=== PATIENT | male | born 1960 | race African-American/Black ===

== ENCOUNTER 2020-03-16 19:11 | Emergency (ER) | payer MEDICAID, OTHER ==
[~2020-03-16] VITALS: Ht 170.2 cm; Wt 70.0 kg
[2020-03-16] MEDS ORDERED: MAGNESIUM/ALUMINUM HYDROXIDE/SIMETHICONE 30ML UDC PO STA (19:48)
[2020-03-16 20:36] LABS: CLARITY URINE CLEAR (CLEAR); COLOR URINE YELLOW (YELLOW); KETONES URINE NEGATIVE (NEGATIVE); LEUKOCYTE ESTERASE URINE NEGATIVE (NEGATIVE); NITRITE URINE NEGATIVE (NEGATIVE); OCCULT BLOOD URINE NEGATIVE (NEGATIVE); PH URINE 6.5 (4.5-8.0); PROTEIN URINE TRACE (NEGATIVE); SPECIFIC GRAVITY URINE 1.038 (1.005-1.030)
[2020-03-16 20:50] LABS: *COCAINE SCREEN URINE NEGATIVE (NEGATIVE); METHADONE URINE SCREEN NEGATIVE (NEGATIVE); OPIATES URINE SCREEN NEGATIVE (NEGATIVE); PHENCYCLIDINE URINE SCREEN NEGATIVE (NEGATIVE)
[2020-03-16 20:51] LABS: *AMPHETAMINES SCREEN URINE NEGATIVE (NEGATIVE); *BARBITURATES SCREEN URINE NEGATIVE (NEGATIVE); *BENZODIAZEPINES SCREEN URINE NEGATIVE (NEGATIVE); CANNABINOID URINE SCREEN NEGATIVE (NEGATIVE)
[2020-03-16 21:28] LABS: BASOPHILS % 0.3 % (0.0-2.0); EOSINOPHILS % 0.2 % (0.0-5.0); HEMATOCRIT. 33.1 % (42.0-52.0); HEMOGLOBIN. 10.9 g/dL (14.0-18.0); LYMPHOCYTES % 8.9 % (20.0-50.0); MEAN CORPUSCULAR HEMOGLOBIN 27.2 pg (28.0-32.0); MEAN CORPUSCULAR VOLUME 82.8 fL (80.0-94.0); MEAN PLATELET VOLUME 8.2 fl (7.4-10.4); MONOCYTES % 6.4 % (2.0-8.0); NEUTROPHILS % 84.2 % (40.0-76.0); PLATELET 288 x1000/uL (130-400); RED CELL DISTRIBUTION WIDTH 16.3 % (11.6-14.6)
[2020-03-16 21:29] LABS: CHLORIDE 98 mEq/L (98-107)
[2020-03-16 21:33] LABS: ETHANOL BLOOD < 10 mg/dL
[2020-03-16] MEDS ORDERED: ONDANSETRON HCL 4MG/2ML INJ IV STA (23:33)
[2020-03-16] MEDS ORDERED: MORPHINE SULFATE 4 MG/ML CPJ (NOT FOR IM USE) IV STA (23:33)
[2020-03-16] MEDS ORDERED: MAGNESIUM CITRATE 300ML SOLUTION PO ONE (23:45)
[2020-03-16] MEDS ORDERED: SODIUM CHLORIDE 0.9% 1,000 ML IV ONE (23:45)
[2020-03-16] MEDS ORDERED: MAGNESIUM HYDROXIDE 400MG/5ML 30ML UDC PO ONE (23:45)
[2020-03-17 01:35] VITALS: BP 154/91
== END 2020-03-17 01:38 | disposition home or self-care (01) ==
LOC: ER 19:11
DX: R10.9 Unspecified abdominal pain (principal); Z85.46 Personal history of malignant neoplasm of prostate; I10 Essential (primary) hypertension; E11.9 Type 2 diabetes mellitus without complications
CPT/HCPCS: 36415; 74176; 80053; 80305; 80320; 81003; 83690; 85025; 93005; 96374; 96375; 99285; J2270; J2405; J7030; G0480

== ENCOUNTER 2020-03-22 03:34 | Emergency (ER) | payer MEDICAID ==
[~2020-03-22] VITALS: Ht 172.7 cm; Wt 63.0 kg
[2020-03-22 03:35] VITALS: BP 140/82
[2020-03-22] MEDS ORDERED: GABAPENTIN 400MG CAPSULE PO ONE (07:00)
== END 2020-03-22 08:05 | disposition home or self-care (01) ==
LOC: ER 03:34
DX: E11.43 Type 2 diabetes mellitus with diabetic autonomic (poly)neuropathy (principal); Z76.0 Encounter for issue of repeat prescription; I10 Essential (primary) hypertension; Z79.4 Long term (current) use of insulin; Z79.84 Long term (current) use of oral hypoglycemic drugs; Z85.46 Personal history of malignant neoplasm of prostate; Z79.899 Other long term (current) drug therapy
CPT/HCPCS: 99283

== ENCOUNTER 2020-04-01 07:43 | Inpatient (IN) | payer MEDICAID, OTHER ==
[~2020-04-01] VITALS: Ht 167.6 cm; Wt 59.9 kg
[2020-04-01] MEDS ORDERED: SODIUM CHLORIDE 0.9% 10ML VIAL ONE (07:53)
[2020-04-01] MEDS ORDERED: ETOMIDATE 2MG/ML 10ML VIAL IV ONE (07:53)
[2020-04-01] MEDS ORDERED: VECURONIUM BROMIDE 10 MG/VIAL IV ONE ×2 (07:53→08:30)
[2020-04-01] MEDS ORDERED: DEXTROSE 50% WATER 50ML SYRINGE IV ONE (07:58)
[2020-04-01] MEDS ORDERED: PROPOFOL 10MG/ML 100ML 100 ML IV ONE ×2 (08:06→08:30)
[2020-04-01] MEDS ORDERED: SODIUM CHLORIDE 0.9% 1,000 ML IV ONE (08:22)
[2020-04-01 08:45] LABS: HEMATOCRIT. 31.6 % (42.0-52.0); HEMOGLOBIN. 10.5 g/dL (14.0-18.0); MEAN CORPUSCULAR VOLUME 81.8 fL (80.0-94.0); PLATELET 286 x1000/uL (130-400); RED BLOOD CELL COUNT 3.87 mill/uL (4.7-6.1); RED CELL DISTRIBUTION WIDTH 16.4 % (11.6-14.6)
[2020-04-01 08:46] LABS: CLARITY URINE CLEAR (CLEAR); COLOR URINE YELLOW (YELLOW); KETONES URINE NEGATIVE (NEGATIVE); LEUKOCYTE ESTERASE URINE NEGATIVE (NEGATIVE); NITRITE URINE NEGATIVE (NEGATIVE); OCCULT BLOOD URINE NEGATIVE (NEGATIVE); PROTEIN URINE 1+ (NEGATIVE); SPECIFIC GRAVITY URINE 1.021 (1.005-1.030)
[2020-04-01 08:49] LABS: CHLORIDE 106 mEq/L (98-107)
[2020-04-01 08:54] LABS: ETHANOL BLOOD < 10 mg/dL
[2020-04-01 09:00] LABS: INR 1.4; PROTHROMBIN TIME 14.8 sec (9.6-11.0)
[2020-04-01 09:08] LABS: BG BASE EXCESS -0.3 mmol/L (-2.0-2.0); BG CARBOXYHEMOGLOBIN 0.2 % (0.5-1.5); BG DEOXYHEMOGLOBIN 0.8 % (0.0-5.0); BG HCO3 ACT 29.1 mmol/L (22.0-26.0); BG METHEMOGLOBIN 1.1 % (0.0-1.5); BG OXYGEN SATURATION 99.2 % (92.0-98.5); BG OXYHEMOGLOBIN 97.9 % (94.0-97.0); BG PCO2 74.8 mmHg (35.0-45.0); BG PH 7.208 (7.350-7.450); BG PO2 446.7 mmHg (75.0-100.0); BG SAMPLE SITE LEFT BRACHIAL; BG TIDAL VOLUME(mL) 500 mL; BG TOTAL HEMOGLOBIN 11.4 g/dL (12.0-18.0); BG VENT MODE VENT - A/C; BG VENT RATE 14 set
[2020-04-01 09:17] LABS: *AMPHETAMINES SCREEN URINE NEGATIVE (NEGATIVE); *BARBITURATES SCREEN URINE NEGATIVE (NEGATIVE); *BENZODIAZEPINES SCREEN URINE NEGATIVE (NEGATIVE); *COCAINE SCREEN URINE NEGATIVE (NEGATIVE)
[2020-04-01 09:18] LABS: CANNABINOID URINE SCREEN NEGATIVE (NEGATIVE); METHADONE URINE SCREEN NEGATIVE (NEGATIVE); OPIATES URINE SCREEN NEGATIVE (NEGATIVE); PHENCYCLIDINE URINE SCREEN NEGATIVE (NEGATIVE)
[2020-04-01 09:41] LABS: NUCLEATED RED BLOOD CELLS 4 /100 WBC; PLATELET ESTIMATE NORMAL
[2020-04-01] MEDS ORDERED: PIPERACILLIN/TAZ 3.375G PREMIX 50 ML IV ONE (09:45)
[2020-04-01 10:43] LABS: BG BASE EXCESS -2.2 mmol/L (-2.0-2.0); BG CARBOXYHEMOGLOBIN 0.3 % (0.5-1.5); BG DEOXYHEMOGLOBIN 12.1 % (0.0-5.0); BG HCO3 ACT 25.3 mmol/L (22.0-26.0); BG METHEMOGLOBIN 0.3 % (0.0-1.5); BG OXYGEN SATURATION 87.8 % (92.0-98.5); BG OXYHEMOGLOBIN 87.3 % (94.0-97.0); BG PCO2 56.5 mmHg (35.0-45.0); BG PH 7.269 (7.350-7.450); BG SAMPLE SITE RIGHT RADIAL; BG TIDAL VOLUME(mL) 500 mL; BG TOTAL HEMOGLOBIN 10.9 g/dL (12.0-18.0); BG VENT MODE VENT - A/C; BG VENT RATE 20 set
[2020-04-01] MEDS ORDERED: ENOXAPARIN 40MG/0.4ML SYR SUBCUT SCH (10:45)
[2020-04-01] MEDS ORDERED: IPRATROPIUM/ALBUTEROL 0.5-3(2.5)MG/3ML NEB NEB PRN (10:45)
[2020-04-01] MEDS ORDERED: ONDANSETRON HCL 4MG/2ML INJ IV PRN (10:45)
[2020-04-01] MEDS ORDERED: PIPERACILLIN/TAZ 3.375G PREMIX 50 ML IV SCH (10:45)
[2020-04-01 10:58] LABS: PHOSPHORUS 3.6 mg/dL (2.5-4.9)
[2020-04-01] MEDS ORDERED: ASPIRIN 325MG EC TABLET PO NR (11:00)
[2020-04-01] MEDS ORDERED: VANCOMYCIN 1 G PREMIX 200 ML IV NR (12:00)
[2020-04-01 12:20] LABS: HEPATITIS B SURFACE ANTIGEN NEGATIVE
[2020-04-01 12:49] LABS: HEPATITIS A AB IGM NEGATIVE (NEGATIVE)
[2020-04-01] MEDS ORDERED: ASPIRIN 300MG SUPP PR ONE (13:30)
[2020-04-01] MEDS ORDERED: DEXAMETHASONE 10 MG/ML VIAL IV ONE (13:30)
[2020-04-01 13:48] LABS: CREATINE KINASE MB FRACTION 6.7 ng/mL (0.5-3.6)
[2020-04-01] MEDS: ENOXAPARIN 40MG/0.4ML SYR SUBCUT SCH (14:39)
[2020-04-01] MEDS ORDERED: PROPOFOL 10MG/ML 100ML 100 ML IV PRN (17:45)
[2020-04-01] MEDS: PANTOPRAZOLE SODIUM 40 MG/VIAL IV SCH (18:41)
[2020-04-01] MEDS: PIPERACILLIN/TAZOBACTAM 3.375 G in DEXT 5% WATER 100 ML IV SCH (18:49)
[2020-04-01] MEDS: IPRATROPIUM/ALBUTEROL 0.5-3(2.5)MG/3ML NEB HHN SCH (21:21)
[2020-04-01] MEDS: VANCOMYCIN 750 MG PREMIX 150 ML IV SCH (22:49)
[2020-04-01 23:18] LABS: CREATINE KINASE MB FRACTION 4.3 ng/mL (0.5-3.6)
[2020-04-02] MEDS: IPRATROPIUM/ALBUTEROL 0.5-3(2.5)MG/3ML NEB HHN SCH ×4 (01:05→19:50)
[2020-04-02] MEDS: PIPERACILLIN/TAZOBACTAM 3.375 G in DEXT 5% WATER 100 ML IV SCH ×3 (02:00→21:28)
[2020-04-02] MEDS ORDERED: IOHEXOL-350 100 ML BOTTLE ONE (04:32)
[2020-04-02 04:41] LABS: HEMATOCRIT. 23.6 % (42.0-52.0); HEMOGLOBIN. 7.9 g/dL (14.0-18.0); MEAN CORPUSCULAR VOLUME 80.6 fL (80.0-94.0); MEAN PLATELET VOLUME 7.4 fl (7.4-10.4); PLATELET 159 x1000/uL (130-400); RED BLOOD CELL COUNT 2.93 mill/uL (4.7-6.1); RED CELL DISTRIBUTION WIDTH 16.3 % (11.6-14.6)
[2020-04-02] MEDS: VANCOMYCIN 750 MG PREMIX 150 ML IV SCH (06:56)
[2020-04-02 08:14] LABS: PLATELET ESTIMATE NORMAL
[2020-04-02 09:27] LABS: BG BASE EXCESS -4.6 mmol/L (-2.0-2.0); BG CARBOXYHEMOGLOBIN 0.1 % (0.5-1.5); BG DEOXYHEMOGLOBIN 1.5 % (0.0-5.0); BG FRACTION INSPIRED OXYGEN 50; BG HCO3 ACT 18.3 mmol/L (22.0-26.0); BG METHEMOGLOBIN 0.5 % (0.0-1.5); BG OXYGEN SATURATION 98.5 % (92.0-98.5); BG OXYHEMOGLOBIN 97.9 % (94.0-97.0); BG PCO2 26.5 mmHg (35.0-45.0); BG PH 7.457 (7.350-7.450); BG PO2 264.3 mmHg (75.0-100.0); BG SAMPLE SITE RIGHT BRACHIAL; BG TIDAL VOLUME(mL) 500 mL; BG TOTAL HEMOGLOBIN 9.1 g/dL (12.0-18.0); BG VENT MODE VENT - A/C; BG VENT RATE 20 set
[2020-04-02] MEDS: PANTOPRAZOLE SODIUM 40 MG/VIAL IV SCH (09:55)
[2020-04-02] MEDS: ENOXAPARIN 40MG/0.4ML SYR SUBCUT SCH (12:00)
[2020-04-02] MEDS ORDERED: ENOXAPARIN 30MG/0.3ML SYR SUBCUT NR (15:00)
[2020-04-02] MEDS ORDERED: PROPOFOL 10MG/ML 100ML 100 ML IV PRN (15:15)
[2020-04-02] MEDS ORDERED: VANCOMYCIN 1 G PREMIX 200 ML IV SCH (18:00)
[2020-04-02 19:45] LABS: TOTAL IRON BINDING CAPACITY 193 ug/dL (250-450)
[2020-04-02 20:05] LABS: FOLIC ACID (FOLATE) SERUM 9.7 ng/mL (>5.38)
[2020-04-03] VITALS (18 sets, daily range): BP systolic 80–156; BP diastolic 46–81
[2020-04-03] MEDS: IPRATROPIUM/ALBUTEROL 0.5-3(2.5)MG/3ML NEB HHN SCH ×4 (03:55→20:18)
[2020-04-03 04:07] LABS: HIV SCREEN 4G Non Reactive (Non Reactive)
[2020-04-03 05:42] LABS: HEMOGLOBIN. 7.6 g/dL (14.0-18.0); MEAN CORPUSCULAR VOLUME 82.1 fL (80.0-94.0); MEAN PLATELET VOLUME 7.3 fl (7.4-10.4); PLATELET 188 x1000/uL (130-400); RED CELL DISTRIBUTION WIDTH 16.7 % (11.6-14.6)
[2020-04-03 05:49] LABS: CHLORIDE 103 mEq/L (98-107)
[2020-04-03 08:57] LABS: PLATELET ESTIMATE NORMAL
[2020-04-03] MEDS ORDERED: ENOXAPARIN 80MG/0.8ML SYR SUBCUT SCH (09:00)
[2020-04-03] MEDS ORDERED: FENTANYL CITRATE/PF 1,000 MCG in SODIUM CHLORIDE 0.9% 80 ML IV PRN (11:00)
[2020-04-03] MEDS ORDERED: MIDAZOLAM HCL 100 MG in DEXT 5% WATER 80 ML IV PRN (11:00)
[2020-04-03] MEDS: LEVETIRACETAM 500MG PREMIX 100 ML IV SCH ×2 (11:08→21:04)
[2020-04-03] MEDS: PANTOPRAZOLE SODIUM 40 MG/VIAL IV SCH (11:08)
[2020-04-03 11:13] LABS: BG BASE EXCESS -4.6 mmol/L (-2.0-2.0); BG CARBOXYHEMOGLOBIN 0.2 % (0.5-1.5); BG DEOXYHEMOGLOBIN 2.4 % (0.0-5.0); BG FRACTION INSPIRED OXYGEN 35; BG HCO3 ACT 21.7 mmol/L (22.0-26.0); BG METHEMOGLOBIN 0.3 % (0.0-1.5); BG OXYGEN SATURATION 97.6 % (92.0-98.5); BG OXYHEMOGLOBIN 97.1 % (94.0-97.0); BG PCO2 45.7 mmHg (35.0-45.0); BG PH 7.294 (7.350-7.450); BG PO2 129.3 mmHg (75.0-100.0); BG SAMPLE SITE LEFT RADIAL; BG TIDAL VOLUME(mL) 500 mL; BG TOTAL HEMOGLOBIN 8.1 g/dL (12.0-18.0); BG VENT MODE VENT - A/C; BG VENT RATE 14 set
[2020-04-03] MEDS: BLOOD SUGAR DIAGNOSTIC STRIP TEST SCH ×3 (11:16→23:18)
[2020-04-03] MEDS: LORAZEPAM 2MG/ML CPJ IV PRN (11:16)
[2020-04-03] MEDS: INSULIN LISPRO 100 UNITS/ML SUBCUT SCH ×3 (11:34→23:19)
[2020-04-03] MEDS ORDERED: CEPH500C2 MT (12:08)
[2020-04-03] MEDS ORDERED: SENN-170 PO (12:08)
[2020-04-03] MEDS ORDERED: GABA800T97 MT (12:08)
[2020-04-03] MEDS: PIPERACILLIN/TAZOBACTAM 3.375 G in DEXT 5% WATER 100 ML IV SCH ×3 (13:00→17:30)
[2020-04-03] MEDS: SODIUM CHLORIDE 0.9% 1,000 ML IV SCH (14:15)
[2020-04-03] MEDS: THIAMINE HCL 100MG TABLET PO SCH (17:30)
[2020-04-03] MEDS: INSULIN GLARGINE UD 100 UNITS/ML SYR SUBCUT SCH (21:04)
[2020-04-04] VITALS (28 sets, daily range): BP systolic 99–158; BP diastolic 56–83
[2020-04-04] MEDS: PIPERACILLIN/TAZOBACTAM 3.375 G in DEXT 5% WATER 100 ML IV SCH ×3 (01:54→17:17)
[2020-04-04] MEDS: SODIUM CHLORIDE 0.9% 1,000 ML IV SCH ×2 (01:55→15:02)
[2020-04-04] MEDS: IPRATROPIUM/ALBUTEROL 0.5-3(2.5)MG/3ML NEB HHN SCH ×4 (02:00→19:44)
[2020-04-04] MEDS: BLOOD SUGAR DIAGNOSTIC STRIP TEST SCH ×4 (05:11→23:53)
[2020-04-04] MEDS: INSULIN LISPRO 100 UNITS/ML SUBCUT SCH ×4 (05:11→23:58)
[2020-04-04 05:31] LABS: MEAN CORPUSCULAR HEMOGLOBIN 26.9 pg (28.0-32.0); MEAN CORPUSCULAR VOLUME 80.9 fL (80.0-94.0); MEAN PLATELET VOLUME 7.6 fl (7.4-10.4); PLATELET 164 x1000/uL (130-400); RED BLOOD CELL COUNT 2.46 mill/uL (4.7-6.1); RED CELL DISTRIBUTION WIDTH 16.6 % (11.6-14.6)
[2020-04-04 05:38] LABS: CHLORIDE 106 mEq/L (98-107)
[2020-04-04 06:13] LABS: HEMATOCRIT. 19.9 % (42.0-52.0); HEMOGLOBIN. 6.6 g/dL (14.0-18.0)
[2020-04-04 08:12] LABS: BG BASE EXCESS 3.1 mmol/L (-2.0-2.0); BG CARBOXYHEMOGLOBIN 0.7 % (0.5-1.5); BG DEOXYHEMOGLOBIN 1.8 % (0.0-5.0); BG FRACTION INSPIRED OXYGEN 30; BG HCO3 ACT 27.1 mmol/L (22.0-26.0); BG METHEMOGLOBIN 0.3 % (0.0-1.5); BG OXYGEN SATURATION 98.2 % (92.0-98.5); BG OXYHEMOGLOBIN 97.2 % (94.0-97.0); BG PCO2 38.6 mmHg (35.0-45.0); BG PH 7.464 (7.350-7.450); BG PO2 128.2 mmHg (75.0-100.0); BG SAMPLE SITE LEFT RADIAL; BG TIDAL VOLUME(mL) 500 mL; BG TOTAL HEMOGLOBIN 7.4 g/dL (12.0-18.0); BG VENT MODE VENT - A/C; BG VENT RATE 18 set
[2020-04-04 09:08] LABS: PLATELET ESTIMATE NORMAL
[2020-04-04] MEDS: THIAMINE HCL 100MG TABLET PO SCH ×2 (09:12→17:16)
[2020-04-04] MEDS: LEVETIRACETAM 500MG PREMIX 100 ML IV SCH ×2 (09:12→20:11)
[2020-04-04] MEDS: FOLIC ACID 1MG TABLET PO SCH (09:12)
[2020-04-04] MEDS: PANTOPRAZOLE SODIUM 40 MG/VIAL IV SCH (09:12)
[2020-04-04] MEDS ORDERED: POLYETHYLENE GLYCOL 3350 (17GM) 1 DOSE PACK PO NR (09:26)
[2020-04-04] MEDS: INSULIN GLARGINE UD 100 UNITS/ML SYR SUBCUT SCH ×2 (12:22→21:46)
[2020-04-04] MEDS: ACETAMINOPHEN 650MG/20.3ML UDC PO PRN (21:45)
[2020-04-05] VITALS (25 sets, daily range): BP systolic 116–168; BP diastolic 63–88
[2020-04-05] MEDS: IPRATROPIUM/ALBUTEROL 0.5-3(2.5)MG/3ML NEB HHN SCH ×4 (01:54→20:29)
[2020-04-05] MEDS: PIPERACILLIN/TAZOBACTAM 3.375 G in DEXT 5% WATER 100 ML IV SCH ×3 (02:43→18:34)
[2020-04-05] MEDS: BLOOD SUGAR DIAGNOSTIC STRIP TEST SCH ×4 (05:28→23:38)
[2020-04-05 05:42] LABS: CHLORIDE 112 mEq/L (98-107)
[2020-04-05] MEDS: INSULIN LISPRO 100 UNITS/ML SUBCUT SCH ×4 (05:42→23:38)
[2020-04-05] MEDS: LORAZEPAM 2MG/ML CPJ IV PRN (05:43)
[2020-04-05] MEDS: SODIUM CHLORIDE 0.9% 1,000 ML IV SCH (05:48)
[2020-04-05 06:05] LABS: HEMATOCRIT. 25.4 % (42.0-52.0); HEMOGLOBIN. 8.4 g/dL (14.0-18.0); MEAN CORPUSCULAR VOLUME 81.4 fL (80.0-94.0); MEAN PLATELET VOLUME 7.5 fl (7.4-10.4); PLATELET 168 x1000/uL (130-400); RED BLOOD CELL COUNT 3.12 mill/uL (4.7-6.1); RED CELL DISTRIBUTION WIDTH 15.7 % (11.6-14.6)
[2020-04-05 07:59] LABS: BG BASE EXCESS 1.9 mmol/L (-2.0-2.0); BG CARBOXYHEMOGLOBIN 0.3 % (0.5-1.5); BG FRACTION INSPIRED OXYGEN 30; BG HCO3 ACT 25.6 mmol/L (22.0-26.0); BG METHEMOGLOBIN 0.1 % (0.0-1.5); BG OXYHEMOGLOBIN 96.6 % (94.0-97.0); BG PCO2 36.5 mmHg (35.0-45.0); BG PH 7.464 (7.350-7.450); BG PO2 97.5 mmHg (75.0-100.0); BG SAMPLE SITE RIGHT RADIAL; BG TIDAL VOLUME(mL) 500 mL; BG TOTAL HEMOGLOBIN 9.4 g/dL (12.0-18.0); BG VENT MODE VENT - A/C; BG VENT RATE 18 set
[2020-04-05] MEDS: DEXTROSE 5% WATER 1,000 ML IV SCH (08:15)
[2020-04-05 08:36] LABS: PLATELET ESTIMATE NORMAL
[2020-04-05] MEDS ORDERED: KCL 20MEQ/100ML PREMIX 100 ML IV SCH ×2 (09:00→22:00)
[2020-04-05] MEDS: PANTOPRAZOLE SODIUM 40 MG/VIAL IV SCH ×2 (09:47→21:03)
[2020-04-05] MEDS: THIAMINE HCL 100MG TABLET PO SCH ×2 (09:48→15:56)
[2020-04-05] MEDS: FOLIC ACID 1MG TABLET PO SCH (09:48)
[2020-04-05] MEDS: INSULIN GLARGINE UD 100 UNITS/ML SYR SUBCUT SCH ×2 (09:49→21:04)
[2020-04-05] MEDS: LEVETIRACETAM 500MG PREMIX 100 ML IV SCH ×2 (09:49→21:03)
[2020-04-05] MEDS ORDERED: MAGNESIUM 4 G PREMIX 100 ML IV SCH (15:00)
[2020-04-05] MEDS ORDERED: PHYTONADIONE 10MG/ML AMP SUBCUT NR (15:45)
[2020-04-05] MEDS: ACETAMINOPHEN 650MG/20.3ML UDC PO PRN (16:01)
[2020-04-05 20:38] LABS: INR 1.1; PARTIAL THROMBOPLASTIN TIME 29.7 sec (23.4-31.0); PROTHROMBIN TIME 11.4 sec (9.6-11.0)
[2020-04-06] VITALS (35 sets, daily range): BP systolic 112–158; BP diastolic 60–86
[2020-04-06] MEDS: IPRATROPIUM/ALBUTEROL 0.5-3(2.5)MG/3ML NEB HHN SCH ×4 (01:56→20:28)
[2020-04-06] MEDS: PIPERACILLIN/TAZOBACTAM 3.375 G in DEXT 5% WATER 100 ML IV SCH ×2 (02:26→09:26)
[2020-04-06] MEDS: LORAZEPAM 2MG/ML CPJ IV PRN ×3 (04:29→15:06)
[2020-04-06 05:12] LABS: HEMOGLOBIN. 8.5 g/dL (14.0-18.0); MEAN CORPUSCULAR VOLUME 82.6 fL (80.0-94.0); MEAN PLATELET VOLUME 7.9 fl (7.4-10.4); PLATELET 130 x1000/uL (130-400); RED BLOOD CELL COUNT 3.14 mill/uL (4.7-6.1); RED CELL DISTRIBUTION WIDTH 16.2 % (11.6-14.6)
[2020-04-06 05:23] LABS: CHLORIDE 110 mEq/L (98-107)
[2020-04-06] MEDS: DEXTROSE 50% WATER 50ML SYRINGE IV PRN ×2 (05:34→07:46)
[2020-04-06] MEDS: BLOOD SUGAR DIAGNOSTIC STRIP TEST SCH ×4 (05:34→23:31)
[2020-04-06] MEDS: INSULIN LISPRO 100 UNITS/ML SUBCUT SCH ×4 (05:34→23:30)
[2020-04-06 07:04] LABS: NUCLEATED RED BLOOD CELLS 3 /100 WBC; PLATELET ESTIMATE NORMAL
[2020-04-06] MEDS ORDERED: ROCURONIUM BROMIDE 10MG/ML VIAL 5ML IV ONE (08:06)
[2020-04-06] MEDS: DEXTROSE 5% WATER 1,000 ML IV SCH (08:48)
[2020-04-06] MEDS: LEVETIRACETAM 500MG PREMIX 100 ML IV SCH ×2 (08:48→20:34)
[2020-04-06] MEDS: PANTOPRAZOLE SODIUM 40 MG/VIAL IV SCH ×2 (08:49→20:34)
[2020-04-06] MEDS: FOLIC ACID 1MG TABLET PO SCH ×2 (08:49→09:00)
[2020-04-06] MEDS: THIAMINE HCL 100MG TABLET PO SCH ×3 (08:49→16:57)
[2020-04-06] MEDS: INSULIN GLARGINE UD 100 UNITS/ML SYR SUBCUT SCH ×2 (09:26→20:57)
[2020-04-06] MEDS ORDERED: LIDOCAINE HCL 1% 20ML VIAL (Pyxis) INJ ONE (10:32)
[2020-04-06] MEDS ORDERED: MIDAZOLAM HCL 5 MG/5 ML VIAL ONE (12:31)
[2020-04-06] MEDS ORDERED: MIDAZOLAM HCL 5 MG/5 ML VIAL IV PRN (12:31)
[2020-04-06] MEDS ORDERED: FENTANYL CITRATE/PF 50MCG/ML 2ML VIAL ONE (12:31)
[2020-04-07] VITALS (12 sets, daily range): BP systolic 103–135; BP diastolic 59–87
[2020-04-07] MEDS: IPRATROPIUM/ALBUTEROL 0.5-3(2.5)MG/3ML NEB HHN SCH ×4 (00:55→20:00)
[2020-04-07] MEDS: DEXTROSE 5% WATER 1,000 ML IV SCH (05:18)
[2020-04-07] MEDS: BLOOD SUGAR DIAGNOSTIC STRIP TEST SCH ×4 (05:18→23:36)
[2020-04-07] MEDS: INSULIN LISPRO 100 UNITS/ML SUBCUT SCH ×4 (05:18→23:41)
[2020-04-07 08:10] LABS: HEMATOCRIT. 22.5 % (42.0-52.0); HEMOGLOBIN. 7.4 g/dL (14.0-18.0); MEAN CORPUSCULAR HEMOGLOBIN 27.2 pg (28.0-32.0); MEAN CORPUSCULAR VOLUME 82.2 fL (80.0-94.0); MEAN PLATELET VOLUME 8.3 fl (7.4-10.4); PLATELET 135 x1000/uL (130-400); RED BLOOD CELL COUNT 2.73 mill/uL (4.7-6.1); RED CELL DISTRIBUTION WIDTH 16.3 % (11.6-14.6)
[2020-04-07] MEDS: FOLIC ACID 1MG TABLET PO SCH (08:11)
[2020-04-07] MEDS: PANTOPRAZOLE SODIUM 40 MG/VIAL IV SCH ×2 (08:12→21:09)
[2020-04-07] MEDS: LEVETIRACETAM 500MG PREMIX 100 ML IV SCH ×2 (08:12→21:09)
[2020-04-07 08:45] LABS: CHLORIDE 106 mEq/L (98-107)
[2020-04-07 08:58] LABS: PHOSPHORUS 3.8 mg/dL (2.5-4.9)
[2020-04-07 09:48] LABS: BG BASE EXCESS -4.7 mmol/L (-2.0-2.0); BG CARBOXYHEMOGLOBIN 0.3 % (0.5-1.5); BG DEOXYHEMOGLOBIN 1.6 % (0.0-5.0); BG FRACTION INSPIRED OXYGEN 30; BG HCO3 ACT 18.5 mmol/L (22.0-26.0); BG METHEMOGLOBIN 0.4 % (0.0-1.5); BG OXYGEN SATURATION 98.4 % (92.0-98.5); BG OXYHEMOGLOBIN 97.7 % (94.0-97.0); BG PCO2 27.2 mmHg (35.0-45.0); BG PO2 152.2 mmHg (75.0-100.0); BG SAMPLE SITE RIGHT RADIAL; BG TIDAL VOLUME(mL) 500 mL; BG TOTAL HEMOGLOBIN 8.2 g/dL (12.0-18.0); BG VENT MODE VENT - A/C; BG VENT RATE 18 set
[2020-04-07 13:39] LABS: CLARITY URINE TURBID (CLEAR); COLOR URINE DK YELLOW (YELLOW); KETONES URINE 1+ (NEGATIVE); LEUKOCYTE ESTERASE URINE TRACE (NEGATIVE); NITRITE URINE NEGATIVE (NEGATIVE); OCCULT BLOOD URINE 3+ (NEGATIVE); PROTEIN URINE 3+ (NEGATIVE); SPECIFIC GRAVITY URINE 1.029 (1.005-1.030)
[2020-04-07] MEDS: INSULIN GLARGINE UD 100 UNITS/ML SYR SUBCUT SCH ×2 (13:46→21:56)
[2020-04-07] MEDS ORDERED: PIPERACILLIN/TAZOBACTAM 3.375 G/VIAL IV SCH (14:00)
[2020-04-07] MEDS: PIPERACILLIN/TAZOBACTAM 3.375 G in DEXT 5% WATER 100 ML IV SCH ×2 (14:22→21:53)
[2020-04-07 14:24] LABS: PLATELET ESTIMATE NORMAL
[2020-04-08] VITALS (12 sets, daily range): BP systolic 114–139; BP diastolic 56–73
[2020-04-08] MEDS: IPRATROPIUM/ALBUTEROL 0.5-3(2.5)MG/3ML NEB HHN SCH ×4 (02:02→20:43)
[2020-04-08] MEDS: PIPERACILLIN/TAZOBACTAM 3.375 G in DEXT 5% WATER 100 ML IV SCH (05:54)
[2020-04-08] MEDS: INSULIN LISPRO 100 UNITS/ML SUBCUT SCH ×3 (05:55→18:00)
[2020-04-08 07:30] LABS: CHLORIDE 103 mEq/L (98-107)
[2020-04-08 07:38] LABS: HEMATOCRIT. 23.8 % (42.0-52.0); MEAN CORPUSCULAR HEMOGLOBIN 27.5 pg (28.0-32.0); MEAN CORPUSCULAR VOLUME 81.8 fL (80.0-94.0); PLATELET 134 x1000/uL (130-400); RED BLOOD CELL COUNT 2.92 mill/uL (4.7-6.1); RED CELL DISTRIBUTION WIDTH 16.4 % (11.6-14.6)
[2020-04-08] MEDS: LEVETIRACETAM 500MG PREMIX 100 ML IV SCH (08:53)
[2020-04-08] MEDS: PANTOPRAZOLE SODIUM 40 MG/VIAL IV SCH ×2 (08:53→21:14)
[2020-04-08] MEDS: INSULIN GLARGINE UD 100 UNITS/ML SYR SUBCUT SCH (10:16)
[2020-04-08] MEDS: BLOOD SUGAR DIAGNOSTIC STRIP TEST SCH ×2 (12:37→18:20)
[2020-04-08 14:05] LABS: PLATELET ESTIMATE NORMAL
[2020-04-08] MEDS: LEVETIRACETAM 500MG/5ML CUP PO SCH (21:14)
[2020-04-09] VITALS (12 sets, daily range): BP systolic 109–128; BP diastolic 60–70
[2020-04-09] MEDS: INSULIN GLARGINE UD 100 UNITS/ML SYR SUBCUT SCH ×2 (00:11→10:04)
[2020-04-09] MEDS: BLOOD SUGAR DIAGNOSTIC STRIP TEST SCH ×3 (00:12→12:09)
[2020-04-09] MEDS: INSULIN LISPRO 100 UNITS/ML SUBCUT SCH ×3 (00:12→12:15)
[2020-04-09] MEDS: IPRATROPIUM/ALBUTEROL 0.5-3(2.5)MG/3ML NEB HHN SCH ×3 (01:53→14:08)
[2020-04-09] MEDS: PANTOPRAZOLE SODIUM 40 MG/VIAL IV SCH (08:28)
[2020-04-09] MEDS: LEVETIRACETAM 500MG/5ML CUP PO SCH ×2 (08:28→21:42)
[2020-04-09 09:37] LABS: BG BASE EXCESS 2.3 mmol/L (-2.0-2.0); BG CARBOXYHEMOGLOBIN 0.8 % (0.5-1.5); BG DEOXYHEMOGLOBIN 1.4 % (0.0-5.0); BG FRACTION INSPIRED OXYGEN 30; BG HCO3 ACT 25.2 mmol/L (22.0-26.0); BG METHEMOGLOBIN 0.8 % (0.0-1.5); BG OXYGEN SATURATION 98.6 % (92.0-98.5); BG PCO2 30.2 mmHg (35.0-45.0); BG PO2 151.1 mmHg (75.0-100.0); BG SAMPLE SITE RIGHT BRACHIAL; BG TIDAL VOLUME(mL) 800 mL; BG VENT MODE VENT - A/C; BG VENT RATE 18 set
[2020-04-09] MEDS ORDERED: LORAZEPAM 2MG/ML CPJ IV PRN (15:00)
[2020-04-09] MEDS ORDERED: MORPHINE SULFATE 100 MG in DEXT 5% WATER 90 ML IV PRN (15:00)
[2020-04-09] MEDS ORDERED: MORPHINE SULFATE 250 MG in DEXT 5% WATER 250 ML IV PRN (16:15)
[2020-04-09] MEDS: MORPHINE SULFATE 250 MG in DEXT 5% WATER 225 ML IV PRN (17:20)
[2020-04-10] VITALS (9 sets, daily range): BP systolic 109–127; BP diastolic 52–67
[2020-04-10] MEDS: LEVETIRACETAM 500MG/5ML CUP PO SCH ×2 (08:09→21:00)
[2020-04-10] MEDS: ACETAMINOPHEN 650MG SUPP PR PRN (08:11)
[2020-04-11] VITALS: BP 149/76
[2020-04-11 04:00] VITALS: BP 131/48
[2020-04-11] MEDS: MORPHINE SULFATE 250 MG in DEXT 5% WATER 225 ML IV PRN (05:41)
[2020-04-11 08:00] VITALS: BP 122/60
[2020-04-11] MEDS: LEVETIRACETAM 500MG/5ML CUP PO SCH ×2 (08:57→21:00)
[2020-04-11 12:00] VITALS: BP 114/61
[2020-04-11 16:00] VITALS: BP 129/66
[2020-04-11 20:00] VITALS: BP 116/65
[2020-04-12] VITALS: BP 121/62
[2020-04-12] MEDS: LEVETIRACETAM 500MG/5ML CUP PO SCH ×2 (09:49→21:22)
[2020-04-12] MEDS: ACETAMINOPHEN 650MG SUPP PR PRN (09:50)
[2020-04-12] MEDS: MORPHINE SULFATE 250 MG in DEXT 5% WATER 225 ML IV PRN (15:13)
[2020-04-12 20:00] VITALS: BP 131/60
[2020-04-13] VITALS: BP 122/62
[2020-04-13 04:00] VITALS: BP 123/63
[2020-04-13 08:00] VITALS: BP 121/62
[2020-04-13] MEDS: LEVETIRACETAM 500MG/5ML CUP PO SCH ×2 (08:47→20:36)
[2020-04-13 12:04] VITALS: BP 124/65
[2020-04-13 16:00] VITALS: BP 137/67
[2020-04-13 20:00] VITALS: BP 139/70
[2020-04-14 01:01] VITALS: BP 124/70
[2020-04-14 04:00] VITALS: BP 124/70
[2020-04-14] MEDS: MORPHINE SULFATE 250 MG in DEXT 5% WATER 225 ML IV PRN (05:26)
[2020-04-14 08:00] VITALS: BP 132/72
[2020-04-14] MEDS: LEVETIRACETAM 500MG/5ML CUP PO SCH ×2 (08:58→21:00)
[2020-04-14 12:00] VITALS: BP 138/77
[2020-04-14 16:00] VITALS: BP 117/69
[2020-04-14 20:00] VITALS: BP 96/59
[2020-04-15] VITALS: BP 93/50
[2020-04-15 04:00] VITALS: BP 70/49
[2020-04-15 08:00] VITALS: BP 63/31
[2020-04-15] MEDS: LEVETIRACETAM 500MG/5ML CUP PO SCH (08:49)
== END 2020-04-15 10:00 | disposition expired | DRG 4 ==
LOC: ER 07:52 → MICUSO 10:45 → CVICU 04-03 07:57 → 5EST 04-06 22:30 → 6EST 04-10 13:57
PROVIDERS: ADMIT Internal Medicine; ATTEND Internal Medicine
PROC: 5A1955Z Respiratory Ventilation, Greater than 96 Consecutive Hours (ICD-10-PCS; principal; 2020-04-06)
PROC: 0BH18EZ Insertion of Endotracheal Airway into Trachea, Via Natural or Artificial Opening Endoscopic (ICD-10-PCS; 2020-04-06)
PROC: 0B110F4 Bypass Trachea to Cutaneous with Tracheostomy Device, Open Approach (ICD-10-PCS; 2020-04-06)
PROC: 0DH68UZ Insertion of Feeding Device into Stomach, Via Natural or Artificial Opening Endoscopic (ICD-10-PCS; 2020-04-06)
PROC: 0GTJ0ZZ Resection of Thyroid Gland Isthmus, Open Approach (ICD-10-PCS; 2020-04-06)
PROC: 05HY33Z Insertion of Infusion Device into Upper Vein, Percutaneous Approach (ICD-10-PCS; 2020-04-06)
PROC: B54MZZA Ultrasonography of Right Upper Extremity Veins, Guidance (ICD-10-PCS; 2020-04-06)
DX: A41.9 Sepsis, unspecified organism (principal); D64.9 Anemia, unspecified; B19.20 Unspecified viral hepatitis C without hepatic coma; E44.0 Moderate protein-calorie malnutrition; J69.0 Pneumonitis due to inhalation of food and vomit; J96.02 Acute respiratory failure with hypercapnia; I21.A1 Myocardial infarction type 2; I10 Essential (primary) hypertension; B18.2 Chronic viral hepatitis C; E11.40 Type 2 diabetes mellitus with diabetic neuropathy, unspecified; E11.649 Type 2 diabetes mellitus with hypoglycemia without coma; G93.1 Anoxic brain damage, not elsewhere classified; D68.69 Other thrombophilia; J96.01 Acute respiratory failure with hypoxia; K29.70 Gastritis, unspecified, without bleeding; R56.9 Unspecified convulsions; R74.0 Nonspecific elevation of levels of transaminase and lactic acid dehydrogenase [LDH]; G92 Toxic encephalopathy; Z51.5 Encounter for palliative care; Z59.0 Homelessness; Z66 Do not resuscitate; Z86.73 Personal history of transient ischemic attack (TIA), and cerebral infarction without residual deficits; Z93.1 Gastrostomy status; Z99.11 Dependence on respirator [ventilator] status; Z68.21 Body mass index [BMI] 21.0-21.9, adult; Z79.899 Other long term (current) drug therapy; R23.3 Spontaneous ecchymoses; D72.825 Bandemia
CPT/HCPCS: 36415; 36573; 36600; 70551; 71045; 71275; 76700; 80048; 80053; 80061; 80076; 80202; 80305; 80320; 81003; 82140; 82270; 82375; 82550; 82553; 82607; 82728; 82746; 82805; 82962; 83036; 83540; 83550; 83605; 83735; 83880; 84100; 84132; 84134; 84145; 84295; 84443; 84478; 84484; 85025; 86705; 86709; 86803; 86850; 86900; 86920; 87070; 87340; 87389; 87635; 93005; 93306; 93970; 94002; 94003; 94640; 95816; 96365; 99291; C1725; C9113; J1100; J1650; J1815; J1953; J2060; J2250; J2270; J2274; J2543; J2704; J3010; J3370; J3430; J3475; J3480; J3490; J7030; J7060; J7070; P9016; Q9967; G0480